=== PATIENT | female | born 1995 | race Caucasian/White ===

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

== ENCOUNTER 2018-02-04 11:12 | Outpatient (CLI) | payer OTHER ==
[2018-02-04 11:59] VITALS: BP 116/69; PULSE 72; RESP 16; TEMP 97.3
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
== END 2018-02-04 12:04 | disposition home or self-care (01) ==
LOC: FBPOP 11:12
PROVIDERS: ATTEND Obstetrics & Gynecology
DX: O26.893 Other specified pregnancy related conditions, third trimester (principal); Z3A.32 32 weeks gestation of pregnancy; M54.5 Low back pain; W10.9XXA Fall (on) (from) unspecified stairs and steps, initial encounter
CPT/HCPCS: 59025; G0463; 99213

== ENCOUNTER 2018-02-25 02:16 | Emergency (ER) | payer OTHER ==
[2018-02-25] MEDS ORDERED: LIDOCAINE 1% INJ 10MG/ML (20 ML MDV) SQ ONE (05:36)
--- NOTE | 2018-02-25 06:04 | ED ---
Skin/Abscess/FB HPI - General Chief complaint: Skin/Abscess/Foreign Body Stated complaint: Hemorrhoids,36 wks Time Seen by Provider: 02/25/18 04:18 Source: patient Mode of arrival: ambulatory Limitations: no limitations - History of Present Illness Initial comments: This patient is 22-year-old woman who states that she is approximately 36 weeks . She presents to have evaluation for which she believes is a hemorrhoid. She describes over the course the past night a lump at her anus and initially mild, now severe aching pain. She has not been passing blood. No fever or chills. complaint: other (Hemorrhoid) -: hour(s) Tetanus Up to Date: yes Severity: severe Quality: aching, constant Consistency: constant Improves with: none Worsens with: palpation Context: none Associated symptoms: denies other symptoms - Related Data Previous Rx's Medication Instructions Recorded Hydrocortisone [Anusol-Hc] 30 gm TP BID #30 gram 02/25/18 Allergies Allergy/AdvReac Type Severity Reaction Status Date / Time No Known Allergies Allergy Verified 04/20/14 16:20 Review of Systems ROS Statement: Those systems with pertinent positive or pertinent negative responses have been documented in the HPI. ROS Other: All systems not noted in ROS Statement are negative. Constitutional: Denies: fever, chills Respiratory: Denies: cough, dyspnea Cardiovascular: Denies: chest pain, palpitations, edema Gastrointestinal: Denies: abdominal pain, vomiting Genitourinary: Denies: dysuria, hematuria, discharge Hematological/Lymphatic: Denies: easy bleeding Past Medical History Additional Past Medical History / Comment(s): VASOVAGAL FAINTING. History of Any Multi-Drug Resistant Organisms: None Reported Past Surgical History: No Surgical Hx Reported Past Psychological History: Anxiety, Depression Smoking Status: Never smoker Past Alcohol Use History: None Reported Past Drug Use History: None Reported General Exam Limitations: no limitations General appearance: alert, in no apparent distress Respiratory exam: Present: normal lung sounds bilaterally. Absent: respiratory distress, wheezes, rales, rhonchi, stridor Cardiovascular Exam: Present: regular rate, normal rhythm, normal heart sounds. Absent: systolic murmur, diastolic murmur, rubs, gallop GI/Abdominal exam: Present: soft. Absent: tenderness Rectal exam: Present: hemorrhoids, other (Patient has approximately 2-1/2 cm external hemorrhoid with clear area of thrombosis. There is marked tenderness.) Extremities exam: Absent: pedal edema Skin exam: Present: warm, dry, intact, normal color. Absent: rash Course Vital Signs 02/25/18 02/25/18 02:24 06:14 Temperature 97.9 F 98.6 F Pulse Rate 82 89 Respiratory 18 19 Rate Blood Pressure 127/80 108/77 O2 Sat by Pulse 99 97 Oximetry Medical Decision Making - Medical Decision Making I discussed indications, risks, and benefits of incision of the thrombosed hemorrhoid, versus conservative treatment and having her follow with surgery. After discussion she requests having incision with removal of the clot. I performed this at the bedside with assistance of nursing staff. Skin was cleansed with topical Betadine. I injected approximately 1 mL of 1% lidocaine without epinephrine. I then performed a small stab incision with a # 11 scalpel at the site of the obvious thrombosis. I was able to express two small clots, and the hemorrhage julianne to approximately half the preprocedure size. There was small amount of blood expressed as well. Patient tolerated procedure well. Discussed postprocedural care as well as follow-up and return parameters. Disposition Clinical Impression: Hemorrhoid thrombosis Disposition: HOME SELF-CARE Condition: Fair Instructions: Hemorrhoids (ED) Prescriptions: Hydrocortisone [Anusol-Hc] 30 gm TP BID #30 gram Is patient prescribed a controlled substance at d/c from ED?: No Referrals: Herbert Way Jr, DO [Primary Care Provider] - 1-2 days Sparkle Brown MD [STAFF PHYSICIAN] - 1-2 days
[2018-02-25 06:40] VITALS: BP 108/77; PULSE 89; RESP 19; TEMP 98.6
== END 2018-02-25 06:15 | disposition home or self-care (01) ==
LOC: EC 02:16
DX: O22.43 Hemorrhoids in pregnancy, third trimester (principal); Z3A.36 36 weeks gestation of pregnancy
CPT/HCPCS: 99283; 46083; J2001

== ENCOUNTER 2018-02-28 01:28 | Outpatient (CLI) | payer OTHER ==
[2018-02-28 02:01] VITALS: BP 120/75; RESP 16
[2018-02-28 02:15] VITALS: PULSE 79; TEMP 97
--- NOTE | 2018-03-01 04:09 | P.MSEPDOC ---
Presenting Problems - Arrival Data Date of Arrival on Unit: 02/28/18 Time of Arrival on Unit: 01:28 Mode of Transport: Wheelchair - Complaint Comment: Hemorrhoid bleeding Medical History - Information : 1 Para: 0 Term: 0 : 0 Abortions: Spontaneous or Elective: 0 Number of Living Children: 0 - Gestational Age Gestational Age by CLARISSA (wks/days): 36 Weeks and 2 Days Review of Systems - Review of Systems Constitutional: No problems Breast: No problems ENT: No problems Cardiovascular: No problems Respiratory: No problems Gastrointestinal: No problems Genitourinary: No problems Musculoskeletal: No problems Neurological: No problems Skin: No problems Vital Signs - Temperature Temperature: 97.0 F Temperature Source: Temporal Artery Scan - Pulse Right Brachial Pulse Rate: 79 Pulse Assessment Method: Pulse Oximetry - Respirations Respiratory Rate: 16 Oxygen Delivery Method: Room Air O2 Sat by Pulse Oximetry: 98 - Blood Pressure Right Arm Blood Pressure: 120/75 Blood Pressure Mean: 90 Blood Pressure Source: Automatic Cuff Medical Screen Scoring (Pre) - Cervical Exam Dilation: Exam Deferred Effacement: Exam Deferred Membranes: Intact - Uterine Contractions Frequency: N/A Duration: N/A Intensity: N/A - Maternal Vital Signs Maternal Temperature: N/A Signs of Preeclampsia: N/A Maternal Respirations: N/A - Pain Assessment Pain Location and Character: Perineal Pain Scale Used: Numeric (1 - 10) Pain Intensity: 3 Pain Management Goal: 0 Pain Description: *Acute, Sore, Tender Pain Frequency: Intermittent Pain Duration Units: Minutes Pain Behavior: Vocalization Pain Aggravating Factors: Activity, Position, Sitting Non-Pharmacological Interventions: Distraction, Position/Reposition, Relaxation Technique - Maternal Trauma Maternal Trauma: N/A - Assessment Baseline FHR: 135 Heart Rate - NICHD Category: Category I (Normal) = 0 NST: Reactive Position: N/A Station: N/A - Total Score Total Score (Pre): 0 - Level of Risk Level of Risk: Low (0-5) Physician Notification (Pre) - Physician Notified Physician Notified Date: 02/28/18 Physician Notified Time: 01:45 Physician/Practitioner Notifed:: Dr. Noel Spoke With: Dr. Noel - Notification Comment Comment: PT cleared from OB stand point. D/C to ER for further evaluation. Disposition - Disposition OB Disposition: Discharge to home Discharge Date: 02/28/18 Discharge Time: 01:45 I agree with the RN Medical Screening Exam: Yes Risk & Benefit of care provided described in d/c instruction: Yes Diagnosis: HEMORRHOIDS IN , THIRD TRIMESTER
== END 2018-02-28 01:48 | disposition home or self-care (01) ==
LOC: FBPOP 01:28
PROVIDERS: ATTEND Obstetrics & Gynecology
DX: O22.43 Hemorrhoids in pregnancy, third trimester (principal); Z3A.36 36 weeks gestation of pregnancy
CPT/HCPCS: 59025; G0463; 99213

== ENCOUNTER 2018-03-30 07:42 | Inpatient (IN) | payer OTHER ==
[2018-03-30] MEDS ORDERED: LIDOCAINE 0.5% (PF) 5 MG/ML (50 ML SDV) SQ PRN (08:00)
[2018-03-30] MEDS ORDERED: LACTATED RINGERS 1,000 ML IV SCH (08:00)
[2018-03-30] MEDS ORDERED: METHYLERGONOVINE 0.2 MG/ML 1 ML AMP IM PRN (08:00)
[2018-03-30] MEDS ORDERED: CARBOPROST TROMETHAMINE 250 MCG/ML 1 ML AMP IM PRN (08:00)
[2018-03-30] MEDS ORDERED: AMPICILLIN 2,000 MG in SODIUM CHLORIDE 0.9% 100 ML IVPB STA (08:00)
[2018-03-30] MEDS ORDERED: TERBUTALINE 1 MG/ML VIAL SQ PRN (08:00)
[2018-03-30] MEDS ORDERED: OXYTOCIN 10 UNIT/ML 1 ML VIAL IM PRN (08:00)
[2018-03-30] MEDS: LACTATED RINGERS 1,000 ML IV SCH ×2 (08:39→08:53)
[2018-03-30 09:14] LABS: Basophils % (A) 0 %; Eosinophils % (A) 0 %; HCT 37.8 % (34.0-46.0); HGB 13.1 gm/dL (11.4-16.0); Lymphocytes # (A) 2.3 k/uL (1.0-4.8); Lymphocytes % (A) 15 %; MCH 29.5 pg (25.0-35.0); MCHC 34.6 g/dL (31.0-37.0); MCV 85.2 fL (80.0-100.0); Mean Platelet Volume 8.5; Monocytes # (A) 0.5 k/uL (0-1.0); Monocytes % (A) 4 %; Neutrophils # (A) 12.4 k/uL (1.3-7.7); Neutrophils % (A) 81 %; Platelet Count 205 k/uL (150-450); RBC 4.44 m/uL (3.80-5.40); RDW 13.1 % (11.5-15.5); WBC 15.3 k/uL (4.0-11.0)
[2018-03-30] MEDS ORDERED: diphenhydrAMINE 50 MG/ML 1 ML VIAL IVP PRN ×2 (11:52)
[2018-03-30] MEDS ORDERED: WITCH HAZEL 1 EACH MED..PAD TOPICAL PRN (11:52)
[2018-03-30] MEDS ORDERED: BENZOCAINE/MENTHOL SPRAY 1 GM/SPRAY AEROSOL TOPICAL PRN (11:52)
[2018-03-30] MEDS ORDERED: LANOLIN CREAM 5 GM TUBE TOPICAL PRN (11:52)
[2018-03-30] MEDS ORDERED: HYDROCORTISONE 2.5% RECTAL CREAM 30 GM TUBE RECTAL PRN (11:52)
[2018-03-30] MEDS ORDERED: diphenhydrAMINE 50 MG CAP PO PRN (11:52)
[2018-03-30] MEDS ORDERED: diphenhydrAMINE 25 MG CAP PO PRN (11:52)
[2018-03-30] MEDS ORDERED: ZOLPIDEM 5 MG TAB PO PRN (11:52)
[2018-03-30] MEDS ORDERED: SIMETHICONE 80 MG CHEWABLE PO PRN (11:52)
[2018-03-30] MEDS ORDERED: OXYTOCIN 20 UNITS/1000 ML NS 1,000 ML IV SCH (12:00)
[2018-03-30] MEDS ORDERED: AMPICILLIN 1,000 MG in SODIUM CHLORIDE 0.9% 50 ML IVPB SCH (12:00)
--- NOTE | 2018-03-30 12:49 | P.HPOB ---
History of Present Illness H&P Date: 03/30/18 Chief Complaint: normal labor 22 year old presents at 40 weeks 4 days in labor. Her cervix was 3-4/100/- 1. She was shahzad every 2-4 minutes. heart tones 125-130 with moderate variability and reactive. Review of Systems All systems: negative Constitutional: Denies chills, Denies fever Eyes: denies blurred vision, denies pain Ears, nose, mouth and throat: Denies headache, Denies sore throat Cardiovascular: Denies chest pain, Denies shortness of breath Respiratory: Denies cough Gastrointestinal: Denies abdominal pain, Denies diarrhea, Denies nausea, Denies vomiting Genitourinary: Denies dysuria, Denies hematuria Musculoskeletal: Denies myalgias Integumentary: Denies pruritus, Denies rash Neurological: Denies numbness, Denies weakness Psychiatric: Denies anxiety, Denies depression Endocrine: Denies fatigue, Denies weight change Past Medical History Additional Past Medical History / Comment(s): VASOVAGAL FAINTING. Obstetric history: This is her first . She has had care with ct since first trimester. O+, abs neg, Rub Imm, RPR NR, HEp b neg. GBS pos. History of Any Multi-Drug Resistant Organisms: None Reported Past Surgical History: No Surgical Hx Reported Smoking Status: Never smoker Medications and Allergies Home Medications Medication Instructions Recorded Confirmed Type Pnv No.95/Ferrous Fum/Folic AC 1 each PO ONCE 02/28/18 03/30/18 History [ Multivitamin Tablet] Allergies Allergy/AdvReac Type Severity Reaction Status Date / Time No Known Allergies Allergy Verified 03/30/18 07:58 Exam Osteopathic Statement: *. No significant issues noted on an osteopathic structural exam other than those noted in the History and Physical/Consult. Intake and Output 03/29/18 03/30/18 03/30/18 22:59 06:59 14:59 Other: Weight 73.028 kg Heart: Regular rate and rhythm Lungs: Clear to auscultation bilaterally Abdomen: Soft, nontender Extremities: Negative Homans sign Results Result Diagrams: 03/30/18 08:24 Abnormal Lab Results - Last 24 Hours (Table) 03/30/18 Range/Units 08:24 WBC 15.3 H (4.0-11.0) k/uL Neutrophils # 12.4 H (1.3-7.7) k/uL Assessment and Plan (1) Normal labor Current Visit: Yes Status: Acute Code(s): O80 - ENCOUNTER FOR FULL-TERM UNCOMPLICATED DELIVERY; Z37.9 - OUTCOME OF DELIVERY, UNSPECIFIED SNOMED Code(s ): 07123814 Plan: 1. Expectant management 2. Anticipate normal vaginal delivery
--- NOTE | 2018-03-30 12:50 | P.PROBDLV ---
Vaginal Delivery Note - . Vaginal Delivery Note: 2 year old presents at 40 weeks 4 days in labor. Her cervix was 3-4/100/- 1. She was shahzad every 2-4 minutes. heart tones 125-130 with moderate variability and reactive. She was admitted to [facility] and antibiotics were started. Amniotomy performed at 8:34 AM clear fluid noted. Epidural was given soon thereafter. Her cervix was completely dilated at 11:04 AM, she pushed and delivered a viable male infant over intact perineum under epidural anesthesia at 11:26 AM. Head delivered OA, anterior shoulder delivered gentle downward guidance followed by posterior shoulder and rest of body. Nose and mouth bulb suctioned, cord clamped and cut, placed mother 's abdomen. Apgars 9, 9, weight 7 lbs. 2 oz. Placenta delivered spontaneously , intact with three-vessel cord at 11:27 AM. Vagina, cervix, and perineum were inspected. Bilateral labial lacerations were repaired with 3-0 Vicryl. Estimated blood loss 150 mL. Mother and baby in stable condition.
[2018-03-30 13:09] VITALS: BMI 25.9
[2018-03-30] MEDS: ACETAMINOPHEN TAB 325 MG TAB PO PRN (14:23)
[2018-03-30] MEDS: SENNOSIDES-DOCUSATE SODIUM 1 EACH TAB PO SCH (20:34)
[2018-03-30] MEDS: IBUPROFEN 600 MG TAB PO PRN (20:34)
--- NOTE | 2018-03-31 08:04 | P.PNOBGVD ---
Subjective - Subjective Principal diagnosis: S/P NVD PPD #1 Interval history: Patient seen and examined. Denies nausea, vomiting, chest pain, shortness of breath or calf pain. She is doing well with breast-feeding. Patient reports: Reports appetite normal, Reports voiding normally, Reports pain well controlled, Reports ambulating normally [place]: doing well Objective - Latest Vital Signs Latest vital signs: Vital Signs Temp Pulse Resp BP Pulse Ox 03/31/18 07:46 98.3 F 77 16 98/56 98 03/30/18 23:19 98.3 F 79 16 106/58 03/30/18 20:00 98.2 F 77 16 126/70 03/30/18 16:00 98.3 F 76 16 124/67 03/30/18 13:29 98.1 F 113 H 16 113/62 03/30/18 12:59 116 H 16 103/66 03/30/18 12:29 88 16 120/66 03/30/18 12:14 103 H 16 126/71 03/30/18 11:59 104 H 16 115/75 03/30/18 11:44 97 16 113/78 03/30/18 11:29 85 16 150/72 Intake and Output 03/30/18 03/31/18 03/31/18 22:59 06:59 14:59 Intake Total 1000 Balance 1000 Intake: IV 1000 Oxytocin 20 Units/1000 ml 1000 Ns 1,000 ml @ Per Protocol IV .Q0M [facility] Rx#: [id number] Other: # Voids 1 1 - Exam Lungs: bilateral: normal Chest: Normal S1, Normal S2 Extremities: Present: normal Abdomen: Present: normal appearance, soft Uterus: Present: normal, firm - Labs Labs: Abnormal Lab Results - Last 24 Hours (Table) 03/30/18 Range/Units 08:24 WBC 15.3 H (4.0-11.0) k/uL Neutrophils # 12.4 H (1.3-7.7) k/uL Assessment and Plan (1) Normal labor Current Visit: Yes Status: Resolved Code(s): O80 - ENCOUNTER FOR FULL-TERM UNCOMPLICATED DELIVERY; Z37.9 - OUTCOME OF DELIVERY, UNSPECIFIED SNOMED Code(s ): 98732869 (2) Status post normal vaginal delivery Current Visit: Yes Status: Acute Code(s): TSB7713 - SNOMED Code(s): 340132382 Plan: 1. Continue care 2. Continue with breast-feeding help 3. Anticipate discharge tomorrow
[2018-03-31] MEDS: IBUPROFEN 600 MG TAB PO PRN ×3 (08:21→23:47)
[2018-03-31] MEDS: SENNOSIDES-DOCUSATE SODIUM 1 EACH TAB PO SCH ×2 (08:47→23:47)
[2018-03-31] MEDS: ACETAMINOPHEN TAB 325 MG TAB PO PRN (18:42)
[2018-04-01] MEDS: ACETAMINOPHEN TAB 325 MG TAB PO PRN (06:20)
[2018-04-01] MEDS: SENNOSIDES-DOCUSATE SODIUM 1 EACH TAB PO SCH (08:00)
--- NOTE | 2018-04-01 08:58 | P.DS ---
Providers Date of admission: 03/30/18 08:02 Expected date of discharge: 04/01/18 Attending physician: Ale Gurrola Primary care physician: Stated None - Discharge Diagnosis(es) (1) Normal labor Current Visit: Yes Status: Resolved (2) Status post normal vaginal delivery Current Visit: Yes Status: Acute Hospital Course: Patient presented in active labor. She underwent a normal vaginal delivery at 40 weeks and 4 days. Her course was uncomplicated. She'll be discharged home day #2 in stable condition to follow-up with me in 6 weeks. Plan - Discharge Summary New Discharge Prescriptions: New Ibuprofen [Motrin] 600 mg PO Q6HR PRN #30 tab PRN Reason: Mild Pain Or Fever >= 100.5 No Action Pnv No.95/Ferrous Fum/Folic AC [ Multivitamin Tablet] 1 each PO ONCE Discharge Medication List Pnv No.95/Ferrous Fum/Folic AC [ Multivitamin Tablet] 1 each PO ONCE [History] Ibuprofen [Motrin] 600 mg PO Q6HR PRN #30 tab 04/01/18 [Rx] Follow up Appointment(s)/Referral(s): Ale Gurrola DO [Doctor of Osteopathic Medicine] - 6 Weeks Discharge Disposition: HOME SELF-CARE
[2018-04-01 13:34] VITALS: BP 115/66; PULSE 86; RESP 16; TEMP 98.3
[2018-04-01] MEDS: IBUPROFEN 600 MG TAB PO PRN (15:30)
== END 2018-04-01 15:40 | disposition home or self-care (01) | DRG 807 ==
LOC: FBPOP 07:42 → 4FBP 08:02
PROVIDERS: ADMIT Obstetrics & Gynecology; ATTEND Obstetrics & Gynecology
PROC: 10E0XZZ Delivery of Products of Conception, External Approach (ICD-10-PCS; principal; 2018-03-30)
PROC: 0HQ9XZZ Repair Perineum Skin, External Approach (ICD-10-PCS; 2018-03-30)
PROC: 00HU33Z Insertion of Infusion Device into Spinal Canal, Percutaneous Approach (ICD-10-PCS; 2018-03-30)
PROC: 3E0R3BZ Introduction of Anesthetic Agent into Spinal Canal, Percutaneous Approach (ICD-10-PCS; 2018-03-30)
DX: O99.824 Streptococcus B carrier state complicating childbirth (principal); O70.0 First degree perineal laceration during delivery; O99.62 Diseases of the digestive system complicating childbirth; K21.9 Gastro-esophageal reflux disease without esophagitis; Z37.0 Single live birth; Z3A.40 40 weeks gestation of pregnancy
CPT/HCPCS: 59025; 85025; 86850; 86900; 86901; 99213

== ENCOUNTER 2020-06-20 14:26 | Observation (INO) | payer OTHER ==
[2020-06-20] MEDS ORDERED: SODIUM CHLORIDE 0.9% 500 ML 500 ML IV STA ×2 (14:49→16:06)
[2020-06-20] MEDS ORDERED: ACETAMINOPHEN TAB 500 MG TAB PO STA (14:49)
--- NOTE | 2020-06-20 15:02 | ED ---
Abdominal Pain HPI - General Chief Complaint: Abdominal Pain Stated Complaint: Cramping - newly preg Time Seen by Provider: 06/20/20 14:37 Source: patient Mode of arrival: ambulatory Limitations: no limitations - History of Present Illness Initial Comments: Patient is a 24-year-old female presenting to the emergency Department with complaints of right groin pain since this morning. Patient states she had a positive home test last week, is unsure how far along she is but thinks she is anywhere from 6-8 weeks along. This is her second , she is 1 child at home. SILVER STEWARD is Dr. Gurrola. She states this morning when she woke up she felt some right lower groin pain and throughout the day has progressed to very steady and sharp in nature. She is currently rating her pain an 8/10. She states she does have some radiation towards her right lower quadrant and right side. She denies history of kidney stones. She denies any vaginal bleeding. She denies any chest pain or short of breath, no fevers or chills. She denies a history of abdominal surgeries. She denies any nausea or vomiting or diarrhea. She has no further complaints at this time. Upon arrival to the ER, her vitals are stable. - Related Data Home Medications Medication Instructions Recorded Confirmed Pnv No.95/Ferrous Fum/Folic AC 1 tab PO DAILY 02/28/18 06/20/20 [ Multivitamin Tablet] Previous Rx's Medication Instructions Recorded HYDROcodone/APAP 5-325MG [[place] 1 tab PO Q4HR PRN #20 tab 06/20/20 5-325] Allergies Allergy/AdvReac Type Severity Reaction Status Date / Time No Known Allergies Allergy Verified 06/20/20 16:38 Review of Systems ROS Statement: Those systems with pertinent positive or pertinent negative responses have been documented in the HPI. ROS Other: All systems not noted in ROS Statement are negative. Past Medical History Additional Past Medical History / Comment(s): VASOVAGAL FAINTING. Obstetric history: This is her first . She has had care with me since first trimester. O+, abs neg, Rub Imm, RPR NR, HEp b neg. GBS pos. History of Any Multi-Drug Resistant Organisms: None Reported Past Surgical History: No Surgical Hx Reported Past Anesthesia/Blood Transfusion Reactions: No Reported Reaction Past Psychological History: Anxiety, Depression Smoking Status: Vaper Past Alcohol Use History: None Reported Past Drug Use History: None Reported - Past Family History Father Family Medical History: No Reported History General Exam - General Exam Comments Initial Comments: GENERAL: Patient is well-developed and well-nourished. Patient is nontoxic and in mild distress. HEAD: Atraumatic, normocephalic. EYES: Pupils equal round and reactive to light, extraocular movements intact, sclera anicteric, conjunctiva are normal. Eyelids were unremarkable. ENT: TMs normal, nares patent, oropharynx clear without exudates. Moist mucous membranes. NECK: Normal range of motion, supple without lymphadenopathy or JVD. LUNGS: Unlabored respirations. Breath sounds clear to auscultation bilaterally and equal. No wheezes rales or rhonchi. HEART: Regular rate and rhythm without murmurs, rubs or gallops. ABDOMEN: Soft, severe tenderness with palpation of the right lower quadrant, right groin area, positive guarding., normoactive bowel sounds. No masses appreciated. : Deferred, pt too painful to tolerate. MUSCULOSKELETAL: Normal extremities with adequate strength and normal range of motion, no pitting or edema. No clubbing or cyanosis. NEUROLOGICAL: Patient is alert and oriented x 3. Motor and sensory are also intact. Cranial nerves II through XII grossly intact. Symmetrical smile. Normal speech, normal gait. PSYCH: Normal mood, normal affect. SKIN: Warm, Dry, normal turgor, no rashes or lesions noted. Limitations: no limitations Course Vital Signs 06/20/20 06/20/20 06/20/20 14:29 15:31 16:19 Temperature 98.2 F Pulse Rate 99 87 87 Respiratory 20 16 16 Rate Blood Pressure 133/83 108/79 98/54 O2 Sat by Pulse 99 99 98 Oximetry 06/20/20 17:05 Temperature Pulse Rate 79 Respiratory 22 Rate Blood Pressure 91/57 O2 Sat by Pulse 98 Oximetry Medical Decision Making - Medical Decision Making Patient is a 24-year-old female, currently anywhere from 6-8 weeks , presenting with severe right lower quadrant pain that started this morning. She had a positive home test last week. , SILVER STEWARD is Dr. Gurrola. No vaginal bleeding, no fevers or chills. Vitals are stable. Labs are unremarkable, normal white count, hCG Quant is 15,000, urine is normal. Ultrasound shows a 6.7 cm thin-walled cyst or cystic lesion the right ovary, ovary and torsion cannot be excluded as there is little to no blood flow. Viable IUP at 6 weeks, 3 days, heart rate 120. Patient continues to have severe pain, we did give her fluids, pain control. I discussed case with Dr. Rueda who will take the patient to surgery to rule out ovarian torsion. Case discussed with Dr. Singletary. - Lab Data Result diagrams: 06/20/20 14:53 06/20/20 14:53 Lab Results 06/20/20 06/20/20 06/20/20 Range/Units 14:53 14:53 14:53 WBC 6.4 (3.8-10.6) k/uL RBC 4.58 (3.80-5.40) m/uL Hgb 13.7 (11.4-16.0) gm/dL Hct 38.7 (34.0-46.0) % MCV 84.7 (80.0-100.0) fL MCH 30.0 (25.0-35.0) pg MCHC 35.4 (31.0-37.0) g/dL RDW 12.0 (11.5-15.5) % Plt Count 203 (150-450) k/uL MPV 7.5 Neutrophils % 62 % Lymphocytes % 29 % Monocytes % 5 % Eosinophils % 2 % Basophils % 1 % Neutrophils # 4.0 (1.3-7.7) k/uL Lymphocytes # 1.9 (1.0-4.8) k/uL Monocytes # 0.3 (0-1.0) k/uL Eosinophils # 0.1 (0-0.7) k/uL Basophils # 0.0 (0-0.2) k/uL Sodium 136 L (137-145) mmol/L Potassium 4.1 (3.5-5.1) mmol/L Chloride 105 (98-107) mmol/L Carbon Dioxide 21 L (22-30) mmol/L Anion Gap 10 mmol/L BUN 6 L (7-17) mg/dL Creatinine 0.50 L (0.52-1.04) mg/dL Est GFR (CKD-EPI)AfAm >90 (>60 ml/min/1.73 sqM) Est GFR (CKD-EPI)NonAf >90 (>60 ml/min/1.73 sqM) Glucose 90 (74-99) mg/dL Plasma Lactic Acid Jesus (0.7-2.0) mmol/L Calcium 9.7 (8.4-10.2) mg/dL Total Bilirubin 0.2 (0.2-1.3) mg/dL AST 18 (14-36) U/L ALT 14 (4-34) U/L Alkaline Phosphatase 61 (38-126) U/L Total Protein 6.9 (6.3-8.2) g/dL Albumin 4.5 (3.5-5.0) g/dL HCG, Quant 88858.1 mIU/mL Urine Color Light Yellow Urine Appearance Clear (Clear) Urine pH 5.5 (5.0-8.0) Ur Specific [place] 1.008 (1.001-1.035) Urine Protein Negative (Negative) Urine Glucose (UA) Negative (Negative) Urine Ketones Negative (Negative) Urine Blood Negative (Negative) Urine Nitrite Negative (Negative) Urine Bilirubin Negative (Negative) Urine Urobilinogen <2.0 (<2.0) mg/dL Ur Leukocyte Esterase Negative (Negative) Blood Type Blood Type Recheck Bld Type Recheck Status Antibody Screen Spec Expiration Date 06/20/20 06/20/20 Range/Units 14:53 14:53 WBC (3.8-10.6) k/uL RBC (3.80-5.40) m/uL Hgb (11.4-16.0) gm/dL Hct (34.0-46.0) % MCV (80.0-100.0) fL MCH (25.0-35.0) pg MCHC (31.0-37.0) g/dL RDW (11.5-15.5) % Plt Count (150-450) k/uL MPV Neutrophils % % Lymphocytes % % Monocytes % % Eosinophils % % Basophils % % Neutrophils # (1.3-7.7) k/uL Lymphocytes # (1.0-4.8) k/uL Monocytes # (0-1.0) k/uL Eosinophils # (0-0.7) k/uL Basophils # (0-0.2) k/uL Sodium (137-145) mmol/L Potassium (3.5-5.1) mmol/L Chloride (98-107) mmol/L Carbon Dioxide (22-30) mmol/L Anion Gap mmol/L BUN (7-17) mg/dL Creatinine (0.52-1.04) mg/dL Est GFR (CKD-EPI)AfAm (>60 ml/min/1.73 sqM) Est GFR (CKD-EPI)NonAf (>60 ml/min/1.73 sqM) Glucose (74-99) mg/dL Plasma Lactic Acid Jesus 0.6 L (0.7-2.0) mmol/L Calcium (8.4-10.2) mg/dL Total Bilirubin (0.2-1.3) mg/dL AST (14-36) U/L ALT (4-34) U/L Alkaline Phosphatase (38-126) U/L Total Protein (6.3-8.2) g/dL Albumin (3.5-5.0) g/dL HCG, Quant mIU/mL Urine Color Urine Appearance (Clear) Urine pH (5.0-8.0) Ur Specific [place] (1.001-1.035) Urine Protein (Negative) Urine Glucose (UA) (Negative) Urine Ketones (Negative) Urine Blood (Negative) Urine Nitrite (Negative) Urine Bilirubin (Negative) Urine Urobilinogen (<2.0) mg/dL Ur Leukocyte Esterase (Negative) Blood Type O Positive Blood Type Recheck O Pos Bld Type Recheck Status No Antibody Screen NEGATIVE Spec Expiration Date 06/23/2020 - 2352 Critical Care Time Critical Care Time: Yes Total Critical Care Time: 35 (Patient 6 weeks , severe right lower quadrant pain, ultrasound reveals evidence for right-sided ovarian torsion, patient was taken to the OR were ovarian torsion was confirmed.) Disposition Clinical Impression: Right lower quadrant abdominal pain during , Right ovarian cyst, Torsion of right ovary Disposition: ADMITTED IP TO THIS HOSP Condition: Good Decision Date: 06/20/20 Decision Time: 16:42
[2020-06-20 15:08] LABS: Appearance,Urine Clear (Clear); Basophils % (A) 1 %; Bilirubin,Urine Negative (Negative); Blood,Urine Negative (Negative); Color,Urine Light Yellow; Eosinophils # (A) 0.1 k/uL (0-0.7); Eosinophils % (A) 2 %; Glucose,Urine (UA) Negative (Negative); HCT 38.7 % (34.0-46.0); HGB 13.7 gm/dL (11.4-16.0); Ketones,Urine Negative (Negative); Leukocyte Esterase,Urine Negative (Negative); Lymphocytes # (A) 1.9 k/uL (1.0-4.8); Lymphocytes % (A) 29 %; MCHC 35.4 g/dL (31.0-37.0); MCV 84.7 fL (80.0-100.0); Mean Platelet Volume 7.5; Monocytes # (A) 0.3 k/uL (0-1.0); Monocytes % (A) 5 %; Neutrophils % (A) 62 %; Nitrite,Urine Negative (Negative); PH, Urine 5.5 (5.0-8.0); Platelet Count 203 k/uL (150-450); Protein,Urine Negative (Negative); RBC 4.58 m/uL (3.80-5.40); Specific Gravity,Urine 1.008 (1.001-1.035); Urobilinogen,Urine <2.0 mg/dL (<2.0); WBC 6.4 k/uL (3.8-10.6)
[2020-06-20 15:15] LABS: ALT 14 U/L (4-34); AST 18 U/L (14-36); African American GFR (CKD) >90 (>60 ml/min/1.73 sqM); Albumin 4.5 g/dL (3.5-5.0); Alkaline Phosphatase 61 U/L (38-126); Anion Gap 10 mmol/L; Blood Urea Nitrogen 6 mg/dL (7-17); Calcium 9.7 mg/dL (8.4-10.2); Carbon Dioxide 21 mmol/L (22-30); Chloride 105 mmol/L (98-107); Glucose 90 mg/dL (74-99); Non-African American GFR(CKD) >90 (>60 ml/min/1.73 sqM); Potassium 4.1 mmol/L (3.5-5.1); Sodium 136 mmol/L (137-145); Total Bilirubin 0.2 mg/dL (0.2-1.3); Total Protein 6.9 g/dL (6.3-8.2)
[2020-06-20] MEDS ORDERED: MORPHINE SULFATE 4 MG/ML SYRINGE IVP STA (15:17)
[2020-06-20] MEDS ORDERED: ONDANSETRON 4 MG/2 ML VIAL IVP STA ×2 (15:23→15:24)
[2020-06-20] MEDS ORDERED: HYDROmorphone 0.5 MG/0.5 ML SYRINGE IVP STA (16:00)
[2020-06-20 16:03] LABS: HCG,Quantitative Serum 15422.1 mIU/mL
--- NOTE | 2020-06-20 16:06 | US ---
EXAMINATION TYPE: Transabdominal DATE OF EXAM: 06/20/2020 3:48 PM COMPARISON: NONE CLINICAL HISTORY: severe right groin pain x 1 day. right pelvic pain. Positive beta hCG test. EXAM PERFORMED: Transvaginal (TV) and Transabdominal (TA) EXAM MEASUREMENTS: GESTATIONAL AGE / DATING Physician Established: Not yet established Dates by LMP: (8 weeks/0 days) EDC: 01/30/21 Dates by First Scan: No previous this is first scan Dates by Current Scan for: (6 weeks/3 days) EDC: 02/10/21 MATERNAL ANATOMY Uterus: 9.9 x 5.4 x 5.7cm Right Ovary: 7.7 x 5.4 x 5.4cm Left Ovary: 3.2 x 1.8 x 1.6cm Post CDS / Adnexa: small amount of free fluid posterior cul-de-sac Presence of free fluid: yes Presence of corpus luteal cyst: yes, hypoechoic area left ovary = 1.4 x 1.2 x 1.3cm GESTATION / SURVEY CRL: 0.6cm (6 weeks/3 days) Yolk Sac (normal less than 6mm): 0.3cm Heart Rate: 120 bpm Rhythm: Normal IUP: Viable IUP Date of LMP: 04/25/20 Beta HcG (if available): Not available at this time single viable IUP 6wks/3days with CLARISSA of 02/10/21. cystic area right ovary = 6.7 x 5.0 x 5.3cm, minim al to no flow visualized right ovary due to small amount of normal ovarian tissue visualized due to l arge cystic area Single live intrauterine gestation as gestational sac, yolk sac, and pole are present. he art rate lower limits of normal. Free fluid in the pelvis noted. Enlarged right ovary due to 6.7 cm thin-walled cyst or cystic lesion. Peripheral follicles in left ov bandar. IMPRESSION: There is 6.7 cm thin-walled cyst or cystic lesion right ovary difficult to completely denys racterize due to size. In patient with right-sided pain, torsion cannot be excluded. Early live intra uterine noted.
[2020-06-20] MEDS ORDERED: MORPHINE SULFATE 4 MG/ML SYRINGE IV PRN (16:38)
[2020-06-20] MEDS ORDERED: IBUPROFEN 400 MG TAB PO PRN (16:38)
[2020-06-20] MEDS ORDERED: ACETAMINOPHEN TAB 325 MG TAB PO PRN (16:38)
[2020-06-20] MEDS ORDERED: ONDANSETRON 4 MG/2 ML VIAL IVP PRN (16:38)
[2020-06-20] MEDS ORDERED: KETOROLAC 15 MG/ML 1 ML VIAL IVP PRN (16:38)
[2020-06-20] MEDS ORDERED: NALOXONE 0.4 MG/ML 1 ML VIAL IV PRN (16:38)
--- NOTE | 2020-06-20 16:51 | P.HPOB ---
History of Present Illness H&P Date: 06/20/20 Chief Complaint: Large right ovarian cyst: Torsion Jany is a 24-year-old at 7 weeks gestation with viable based on ultrasound. There was significant concern that she may have an ectopic with new onset right lower quadrant pain started yesterday and was significantly worse today. She does relate that sometime last week she began having some intermittent pain that would come and go but starting yesterday became much more consistent. This morning at approximately 10 AM she began having severe right lower quadrant pain that was constant and was 10 out of 10. She was brought to the emergency room where findings of a 6 cm cyst were noted with limited to no blood flow as well as a viable 7 week . This is a very challenging condition as she is but has what we suspect is a torsed ovary that is currently in the process of dying. Surgical intervention is necessary to reduce the torsion and break the cyst there is a chance she is aware that she could lose the ovary. There is also a chance that surgery in and of itself could cause a miscarriage. We had a very lengthy discussion between she and her significant other I explained these things in great detail we will try and minimize the risk by doing as little surgery is possible we do not plan to do any extensive dissection of the cyst the goal is to reduce any torsion metastases present and do a large cystotomy to drain the cyst and then try and get her out of the operating room. Other risks did include but were not limited to bleeding and infection, damage to bladder or bowel, vascular injuries, nerve injuries. Both she and her significant other understand the critical nature of the torsed ovary and potential for losing her ovary with possible infectious etiology or problems moving forward and that the sooner we can untorse at the better the likelihood of it surviving is but they are acutely aware that unfortunately surgery could result in a miscarriage and these were very clearly explained to them and will plan to move forward with a diagnostic laparoscopy as soon as possible. On physical exam her vital signs currently are stable and she is afebrile. Her heart is regular her lungs are clear. Extremities without pain. Abdomen is grossly tender with rebound and guarding. Ultrasound does not show any significant free fluid in the posterior cul-de-sac slightly do not think that the cyst is seen in the process of popping it seems much more likely that it is torsed on itself in the last day or so. Assessment right ovarian cyst with suspected torsion. Intrauterine at 7 weeks heart rate 120 Plan diagnostic laparoscopy with expectation that if everything is fine she will plan to go home tonight and will follow up with the office in the next day or 2 for re-ultrasound to verify viability. Past Medical History Additional Past Medical History / Comment(s): VASOVAGAL FAINTING. Obstetric history: This is her first . She has had care with me since first trimester. O+, abs neg, Rub Imm, RPR NR, HEp b neg. GBS pos. History of Any Multi-Drug Resistant Organisms: None Reported Past Surgical History: No Surgical Hx Reported Past Anesthesia/Blood Transfusion Reactions: No Reported Reaction Past Psychological History: Anxiety, Depression Smoking Status: Vaper Past Alcohol Use History: None Reported Past Drug Use History: None Reported - Past Family History Father Family Medical History: No Reported History Medications and Allergies Home Medications Medication Instructions Recorded Confirmed Type Pnv No.95/Ferrous Fum/Folic AC 1 tab PO DAILY 02/28/18 06/20/20 History [ Multivitamin Tablet] Allergies Allergy/AdvReac Type Severity Reaction Status Date / Time No Known Allergies Allergy Verified 06/20/20 16:38 Exam Osteopathic Statement: *. No significant issues noted on an osteopathic st ructural exam other than those noted in the History and Physical/Consult. Vital Signs Temp Pulse Resp BP Pulse Ox 06/20/20 16:19 87 16 98/54 98 06/20/20 15:31 87 16 108/79 99 06/20/20 14:29 98.2 F 99 20 133/83 99 Intake and Output 06/20/20 06/20/20 06/20/20 06:59 14:59 22:59 Other: Weight 70.307 kg Results Result Diagrams: 06/20/20 14:53 06/20/20 14:53 Abnormal Lab Results - Last 24 Hours (Table) 06/20/20 06/20/20 Range/Units 14:53 14:53 Sodium 136 L (137-145) mmol/L Carbon Dioxide 21 L (22-30) mmol/L BUN 6 L (7-17) mg/dL Creatinine 0.50 L (0.52-1.04) mg/dL Plasma Lactic Acid Jesus 0.6 L (0.7-2.0) mmol/L
[2020-06-20] MEDS ORDERED: GLYCOPYRROLATE 0.2 MG/ML 2 ML VIAL ONE (17:20)
[2020-06-20] MEDS ORDERED: IV FLUID CONTINUATION 1,000 ML IV ONE (17:20)
[2020-06-20] MEDS ORDERED: LIDOCAINE 1% INJ 10MG/ML (20 ML MDV) ONE (17:20)
[2020-06-20] MEDS ORDERED: PROPOFOL 10 MG/ML 20 ML VIAL IV ONE (17:20)
[2020-06-20] MEDS ORDERED: DEXAMETHASONE SOD PHOSPHATE 10 MG/ML 1 ML VIAL ONE (17:20)
[2020-06-20] MEDS ORDERED: ROCURONIUM 10 MG/ML (5 ML VIAL) IV ONE (17:20)
[2020-06-20] MEDS ORDERED: fentaNYL (PF) 50 MCG/ML 2 ML AMP ONE (17:20)
[2020-06-20] MEDS ORDERED: KETOROLAC 15 MG/ML 1 ML VIAL ONE (17:20)
[2020-06-20] MEDS ORDERED: SUCCINYLCHOLINE CHLORIDE 100 MG/5 ML SYR IV ONE (17:20)
[2020-06-20] MEDS ORDERED: ONDANSETRON 4 MG/2 ML VIAL ONE (17:20)
[2020-06-20] MEDS ORDERED: NEOSTIGMINE 1 MG/ML 10 ML VIAL ONE (17:20)
[2020-06-20] MEDS ORDERED: SODIUM CHLORIDE 0.9% 100 ML with ceFAZolin 2,000 MG IV ONE ×2 (17:30)
[2020-06-20] MEDS ORDERED: BUPIVACAINE (PF) 0.25% 30 ML VIAL SQ ONE ×3 (17:35)
[2020-06-20] MEDS ORDERED: LACTATED RINGERS 1,000 ML IV ONE (17:38)
[2020-06-20 18:25] VITALS: TEMP 97
--- NOTE | 2020-06-20 18:30 | P.OP ---
Date of Procedure: 06/20/20 Preoperative Diagnosis: Acute abdominal pain with ovarian cyst suspected torsion Postoperative Diagnosis: Same with torsion of right ovary Procedure(s) Performed: Diagnostic laparoscopy with resolution of torsion and right ovarian cystotomy Anesthesia: BRANDIE Surgeon: Malcolm Rueda Estimated Blood Loss (ml): 5 IV fluids (ml): 200 Urine output (ml): 100 Pathology: none sent Condition: stable Disposition: same day Operative Findings: Right ovarian cyst with torsion 6 reduced with what appears to be good blood flow upon resolution of torsion Description of Procedure: Patient was taken to the operating suite where a general anesthetic was found be adequate. She was prepped and draped in normal sterile fashion and placed in the dorsal lithotomy position. Initially a red rubber catheter was used to drain the bladder of urine and a sponge stick was placed in the vagina in case we needed some manipulation. Once this was completed gloves were changed and attention was turned to the abdominal portion procedure where 2 mL of quarter percent Marcaine was injected periumbilically. Through this injected anesthetic a 5 mm skin incision was made and through this incision, under direct visualization with an optical trocar and sleeve, the camera was inserted. Once peritoneal placement was assured gas was allowed to fully insufflate the abdomen and patient was then placed in a very steep Trendelenburg position. Immediately upon entry and once omentum fell back off of the uterus and ovary we could clearly visualize a torsed ovary underneath the uterus in the posterior cul-de-sac. Second port and sleeve were then inserted in the left lower quadrant again under direct visualization through a 5 mm trocar and sleeve. Uterus was then gently elevated and the ovary began to untwist 5 total untwist were done just with gravity and then we did untwist one more full twist to bring the ovary up out of the cul-de-sac completely and to place it on the between the bowel and the uterus for stabilization. Once completed L Hook with cautery 2 small holes in the right ovary to drain the cyst. Cyst drained easily and then suction was used to remove the fluid from the abdomen. Inspection revealed almost immediate return of color to the ovary no evidence of necrosis or of the ovary is noted therefore is left in situ. Once this completed gas was allowed to expel from the abdomen 5 deep breaths were provided. Instruments were then removed and 4-0 Vicryl was used to close incision subcuticular and another 6 mL of quarter percent Marcaine was injected around these incisions. Instruments were then removed from vagina. Sponge, lap, needle counts were all correct 2. Patient was then taken to the recovery room in stable and satisfactory condition. Plan - Discharge Summary New Discharge Prescriptions: New HYDROcodone/APAP 5-325MG [[place] 5-325] 1 tab PO Q4HR PRN #20 tab PRN Reason: Pain No Action Pnv No.95/Ferrous Fum/Folic AC [ Multivitamin Tablet] 1 tab PO DAILY Discharge Medication List Pnv No.95/Ferrous Fum/Folic AC [ Multivitamin Tablet] 1 tab PO DAILY 02/28/18 [History] HYDROcodone/APAP 5-325MG [[place] 5-325] 1 tab PO Q4HR PRN #20 tab 06/20/20 [Rx] Follow up Appointment(s)/Referral(s): Herbert Way Jr, DO [Primary Care Provider] - 1-2 days Ale Gurrola DO [Family Provider] - 1 Week Activity/Diet/Wound Care/Special Instructions: No heavy lifting, limit stairs and driving, and pelvic rest. If any high temperatures, heavy bleeding, or severe pain call our office or report back to the emergency room Discharge Disposition: HOME SELF-CARE
[2020-06-20 19:09] VITALS: RESP 16
[2020-06-20 19:50] VITALS: BP 105/55; PULSE 65
== END 2020-06-20 20:09 | disposition home or self-care (01) ==
LOC: EC 14:26 → 6PED 16:38 → INTOOBSV 16:38 → UNDODISIN 20:09
PROVIDERS: ADMIT Obstetrics & Gynecology; ATTEND Obstetrics & Gynecology
DX: O34.81 Maternal care for other abnormalities of pelvic organs, first trimester (principal); N83.511 Torsion of right ovary and ovarian pedicle; N83.201 Unspecified ovarian cyst, right side; O99.341 Other mental disorders complicating pregnancy, first trimester; F32.9 Major depressive disorder, single episode, unspecified; F41.9 Anxiety disorder, unspecified; N83.12 Corpus luteum cyst of left ovary; Z3A.01 Less than 8 weeks gestation of pregnancy
CPT/HCPCS: 96374; 96375; 99291; 36415; 86900; 86901; 80053; 83605; 85025; 86850; 81003; 84702; 76801; 76817; 58662; G0378; J2270; J1100; J2710; J2405; J0690; J2001; J3010; J1885; J0330; J2704; J1170

== ENCOUNTER 2020-11-28 19:00 | Outpatient (CLI) | payer OTHER ==
[2020-11-28 21:10] VITALS: BP 128/60; PULSE 85; RESP 16; TEMP 98.3
--- NOTE | 2020-12-04 07:21 | P.MSEPDOC ---
Presenting Problems - Arrival Data Date of Arrival on Unit: 11/28/20 Time of Arrival on Unit: 19:01 Mode of Transport: Ambulatory - Complaint OB-Reason for Admission/Chief Complaint: Decreased Movement Comment: lower abd pain and pressure Medical History - Information : 2 Para: 1 Term: 1 : 0 Abortions: Spontaneous or Elective: 0 Number of Living Children: 1 - Gestational Age Gestational Age by CLARISSA (wks/days): 29 Weeks and 1 Days Review of Systems - Review of Systems Constitutional: No problems Breast: No problems ENT: No problems Cardiovascular: No problems Respiratory: No problems Gastrointestinal: No problems Genitourinary: No problems Musculoskeletal: No problems Neurological: No problems Skin: No problems Vital Signs - Temperature Temperature: 98.3 F Temperature Source: Oral - Pulse Pulse Oximetery Pulse Rate: 85 Pulse Assessment Method: Pulse Oximetry - Respirations Respiratory Rate: 16 Oxygen Delivery Method: Room Air O2 Sat by Pulse Oximetry: 97 - Blood Pressure Right Arm Blood Pressure: 128/60 Blood Pressure Mean: 82 Blood Pressure Source: Automatic Cuff Medical Screen Scoring - Assessment - Baby A Baseline FHR: 145 Heart Rate - NICHD Category: Category II (Indeterminate) NST: Reactive Physician Notification - Physician Notified Physician Notified Date: 11/28/20 Physician Notified Time: 20:12 Physician: Ale Gurrola Order Received: Yes (d/c home and to keep appt for 12/04/20) Maternal Triage Index - Maternal Triage Index Presenting for scheduled procedure w/no complaint: No - Stat/Priority 1 Stat Priority 1: No - Urgent/Priority 2 Urgent Priority 2: No - Prompt/Priority 3 Prompt Priority 3: No - Non-Urgent/Priority 4 Non-Urgent Priority 4: Yes Criteria Met for Priority 4: pt presents to triage with lower abd pressure and pain, and not feeling baby move as much since last night Disposition - Disposition OB Disposition: Discharge to home, Written follow up instructions reviewed Discharge Date: 11/28/20 Discharge Time: 20:16 I agree with the RN Medical Screening Exam: Yes Case reviewed; plan agreed upon as documented in EMR&OBIX.: Yes Diagnosis: DECREASED MOVEMENTS, THIRD TRIMESTER, FETUS 1
== END 2020-11-28 20:16 | disposition home or self-care (01) ==
LOC: FBPOP 19:00
PROVIDERS: ATTEND Obstetrics & Gynecology
DX: O36.8131 Decreased fetal movements, third trimester, fetus 1 (principal); Z3A.29 29 weeks gestation of pregnancy
CPT/HCPCS: 59025; G0463; 99213

== ENCOUNTER 2021-02-16 02:30 | Inpatient (IN) | payer OTHER ==
[2021-02-16] MEDS ORDERED: METHYLERGONOVINE 0.2 MG/ML 1 ML AMP IM PRN (03:48)
[2021-02-16] MEDS ORDERED: OXYTOCIN 10 UNIT/ML 1 ML VIAL IM PRN (03:48)
[2021-02-16] MEDS ORDERED: TERBUTALINE 1 MG/ML VIAL SQ PRN (03:48)
[2021-02-16] MEDS ORDERED: LIDOCAINE 0.5% (PF) 5 MG/ML (50 ML SDV) SQ PRN (03:48)
[2021-02-16] MEDS ORDERED: CARBOPROST TROMETHAMINE 250 MCG/ML 1 ML AMP IM PRN (03:48)
[2021-02-16] MEDS: LACTATED RINGERS 1,000 ML IV SCH ×3 (03:54→05:03)
[2021-02-16 04:22] LABS: Basophils % (A) 0 %; Eosinophils # (A) 0.1 k/uL (0-0.7); Eosinophils % (A) 1 %; HCT 38.5 % (34.0-46.0); HGB 12.8 gm/dL (11.4-16.0); Lymphocytes # (A) 2.8 k/uL (1.0-4.8); Lymphocytes % (A) 26 %; MCH 28.8 pg (25.0-35.0); MCHC 33.3 g/dL (31.0-37.0); MCV 86.4 fL (80.0-100.0); Mean Platelet Volume 9.9; Monocytes # (A) 0.5 k/uL (0-1.0); Monocytes % (A) 5 %; Neutrophils # (A) 7.4 k/uL (1.3-7.7); Neutrophils % (A) 68 %; Platelet Count 168 k/uL (150-450); RBC 4.45 m/uL (3.80-5.40); RDW 13.2 % (11.5-15.5); WBC 10.8 k/uL (3.8-10.6)
[2021-02-16] MEDS ORDERED: BUPIVACAINE (PF) 0.25% 30 ML VIAL ONE (04:35)
[2021-02-16] MEDS ORDERED: SODIUM CHLORIDE 0.9% 100 ML BAG ONE (04:35)
[2021-02-16] MEDS ORDERED: fentaNYL (PF) 50 MCG/ML 5 ML AMP ONE (04:35)
[2021-02-16] MEDS ORDERED: CITRIC ACID-SODIUM CITRATE 15 ML CUP PO ONE (05:09)
[2021-02-16] MEDS ORDERED: ROPIVACAINE 100 MG, fentaNYL (PF). 200 MCG in SODIUM CHLORIDE 0.9% 76 ML EPIDURAL ONE (07:19)
[2021-02-16] MEDS ORDERED: ZOLPIDEM 5 MG TAB PO PRN (07:53)
[2021-02-16] MEDS ORDERED: diphenhydrAMINE 25 MG CAP PO PRN (07:53)
[2021-02-16] MEDS ORDERED: HYDROCORTISONE 2.5% RECTAL CREAM 30 GM TUBE RECTAL PRN (07:53)
[2021-02-16] MEDS ORDERED: SIMETHICONE 80 MG CHEWABLE PO PRN (07:53)
[2021-02-16] MEDS ORDERED: LANOLIN CREAM 5 GM TUBE TOPICAL PRN (07:53)
[2021-02-16] MEDS ORDERED: diphenhydrAMINE 50 MG CAP PO PRN (07:53)
[2021-02-16] MEDS ORDERED: BENZOCAINE/MENTHOL SPRAY 1 GM/SPRAY AEROSOL TOPICAL PRN (07:53)
[2021-02-16] MEDS ORDERED: diphenhydrAMINE 50 MG/ML 1 ML VIAL IVP PRN ×2 (07:53)
[2021-02-16] MEDS ORDERED: OXYTOCIN 30 UNITS/500 ML NS 30 UNIT in SALINE 1 500ML.BAG IV SCH (08:00)
--- NOTE | 2021-02-16 08:52 | P.HPOB ---
History of Present Illness H&P Date: 02/16/21 Chief Complaint: SROM, labor 25-year-old presents at 40 weeks and 4 days in labor. Her cervix was 4-5 cm dilated, 80% effaced, -2 station. She was shahzad every 3-5 minutes. heart tones 135 with moderate variability and reactive. At 3:24 AM while she was in triage her water broke and clear fluid was noted. Review of Systems All systems: negative Constitutional: Denies chills, Denies fever Eyes: denies blurred vision, denies pain Ears, nose, mouth and throat: Denies headache, Denies sore throat Cardiovascular: Denies chest pain, Denies shortness of breath Respiratory: Denies cough Gastrointestinal: Denies abdominal pain, Denies diarrhea, Denies nausea, Denies vomiting Genitourinary: Denies dysuria, Denies hematuria Musculoskeletal: Denies myalgias Integumentary: Denies pruritus, Denies rash Neurological: Denies numbness, Denies weakness Psychiatric: Denies anxiety, Denies depression Endocrine: Denies fatigue, Denies weight change Past Medical History Additional Past Medical History / Comment(s): VASOVAGAL FAINTING. Obstetric history: First was a vaginal delivery. This is her second . She has had care with me since first trimester. O+, abs neg, Rub Imm, RPR NR, HEp b neg. GBS neg. History of Any Multi-Drug Resistant Organisms: None Reported Past Surgical History: No Surgical Hx Reported Additional Past Surgical History / Comment(s): Laproscopic revision of torsion and right ovarian cyst 07/06 Past Anesthesia/Blood Transfusion Reactions: No Reported Reaction Past Psychological History: Anxiety, Depression Smoking Status: Never smoker Past Alcohol Use History: None Reported Past Drug Use History: None Reported - Past Family History Father Family Medical History: No Reported History Medications and Allergies Home Medications Medication Instructions Recorded Confirmed Type Pnv No.95/Ferrous Fum/Folic AC 1 tab PO DAILY 02/28/18 02/16/21 History [ Multivitamin Tablet] Allergies Allergy/AdvReac Type Severity Reaction Status Date / Time No Known Allergies Allergy Verified 06/20/20 16:38 Exam Osteopathic Statement: *. No significant issues noted on an osteopathic structural exam other than those noted in the History and Physical/Consult. Vital Signs Temp Pulse Resp BP Pulse Ox 02/16/21 03:39 97.7 F 71 16 135/74 02/16/21 02:41 97.8 F 83 16 133/80 97 Intake and Output 02/15/21 02/16/21 02/16/21 22:59 06:59 14:59 Other: # Voids 3 Weight 80.739 kg Heart: Regular rate and rhythm Lungs: Clear to auscultation bilaterally Abdomen: Soft, nontender Extremities: Negative Homans sign Results Result Diagrams: 02/16/21 03:55 Abnormal Lab Results - Last 24 Hours (Table) 02/16/21 Range/Units 03:55 WBC 10.8 H (3.8-10.6) k/uL Assessment and Plan (1) Normal labor Current Visit: No Status: Resolved Code(s): O80 - ENCOUNTER FOR FULL-TERM UNCOMPLICATED DELIVERY; Z37.9 - OUTCOME OF DELIVERY, UNSPECIFIED SNOMED Code(s): 06865123 Plan: 1. Admit to family place 2. Expectant management 3. Anticipate normal vaginal delivery
--- NOTE | 2021-02-16 08:53 | P.PROBDLV ---
Vaginal Delivery Note - . Vaginal Delivery Note: 25-year-old presents at 40 weeks and 4 days in labor. Her cervix was 4-5 cm dilated, 80% effaced, -2 station. She was shahzad every 3-5 minutes. heart tones 135 with moderate variability and reactive. At 3:24 AM while she was in triage her water broke and clear fluid was noted. She is admitted to [facility] an epidural was placed for pain management. Her cervix was completely dilated at 7:33 AM. She pushed, and delivered a viable female over intact perineum under epidural anesthesia at 7:42 AM. Head delivered OA, anterior shoulder delivered gentle downward guidance followed by posterior shoulder and rest of body. Nose and mouth bulb suctioned, cord clamped and cut, placed mother's abdomen. Apgars 8, 9, weight 7 lbs. 4 oz. Placenta delivered spontaneously, intact with three-vessel cord at 7:45 AM. Vagina, cerv ix, perineum inspected. No lacerations noted. Estimated blood loss 150 mL. Mother and baby in stable condition.
[2021-02-16] MEDS: SENNOSIDES-DOCUSATE SODIUM 1 EACH TAB PO SCH ×2 (11:23→21:18)
[2021-02-16] MEDS: ACETAMINOPHEN TAB 325 MG TAB PO PRN ×2 (12:32→16:47)
[2021-02-16] MEDS: IBUPROFEN 600 MG TAB PO PRN (14:42)
[2021-02-17] MEDS: IBUPROFEN 600 MG TAB PO PRN ×3 (01:39→13:34)
[2021-02-17] MEDS: ACETAMINOPHEN TAB 325 MG TAB PO PRN ×2 (03:51→13:35)
[2021-02-17 07:39] LABS: Basophils % (A) 0 %; Eosinophils # (A) 0.1 k/uL (0-0.7); Eosinophils % (A) 1 %; HCT 36.2 % (34.0-46.0); HGB 11.8 gm/dL (11.4-16.0); Lymphocytes # (A) 2.8 k/uL (1.0-4.8); Lymphocytes % (A) 30 %; MCH 28.9 pg (25.0-35.0); MCHC 32.6 g/dL (31.0-37.0); MCV 88.9 fL (80.0-100.0); Mean Platelet Volume 9.7; Monocytes # (A) 0.4 k/uL (0-1.0); Monocytes % (A) 4 %; Neutrophils % (A) 64 %; Platelet Count 129 k/uL (150-450); RBC 4.08 m/uL (3.80-5.40); RDW 13.3 % (11.5-15.5); WBC 9.4 k/uL (3.8-10.6)
[2021-02-17 09:15] VITALS: RESP 16
--- NOTE | 2021-02-17 09:55 | P.DS ---
Providers Date of admission: 02/16/21 03:29 Expected date of discharge: 02/17/21 Attending physician: Ale Gurrola Primary care physician: Ale Gurrola - Discharge Diagnosis(es) (1) Status post normal vaginal delivery Current Visit: No Status: Acute Hospital Course: Patient presented in active labor at 40 weeks and 4 days. She did get an epidural for pain management and then had a spontaneous normal vaginal delivery. course was uncomplicated. She denies nausea, vomiting, chest pain, shortness of breath or any calf pain. Her lochia is decreasing she is tolerating regular diet and ambulating without problem. She'll be discharged home day #1 in stable condition to follow-up with me in 6 weeks. Plan - Discharge Summary New Discharge Prescriptions: New Ibuprofen [Motrin] 600 mg PO Q6HR PRN #30 tab PRN Reason: Mild Pain (Scale 1 To 3) No Action Pnv No.95/Ferrous Fum/Folic AC [ Multivitamin Tablet] 1 tab PO DAILY Discharge Medication List Pnv No.95/Ferrous Fum/Folic AC [ Multivitamin Tablet] 1 tab PO DAILY 02/28/18 [History] Ibuprofen [Motrin] 600 mg PO Q6HR PRN #30 tab 02/17/21 [Rx] Follow up Appointment(s)/Referral(s): Ale Gurrola DO [Primary Care Provider] - 6 Weeks Discharge Disposition: HOME SELF-CARE
[2021-02-17 16:51] VITALS: BP 122/71; PULSE 68; TEMP 98.2
== END 2021-02-17 17:47 | disposition home or self-care (01) | DRG 807 ==
LOC: FBPOP 02:30 → 4FBP 03:29
PROVIDERS: ADMIT Obstetrics & Gynecology; ATTEND Obstetrics & Gynecology
PROC: 10E0XZZ Delivery of Products of Conception, External Approach (ICD-10-PCS; principal; 2021-02-16)
PROC: 4A0HXCZ Measurement of Products of Conception, Cardiac Rate, External Approach (ICD-10-PCS; 2021-02-16)
DX: O99.344 Other mental disorders complicating childbirth (principal); Z37.0 Single live birth; F41.9 Anxiety disorder, unspecified; F32.A Depression, unspecified; Z3A.40 40 weeks gestation of pregnancy
CPT/HCPCS: 59025; 85025; 86850; 86900; 86901; 99213

== ENCOUNTER 2021-12-06 19:44 | Emergency (ER) | payer OTHER ==
[2021-12-06 19:48] VITALS: BP 114/68; PULSE 85; RESP 18; TEMP 98.5
[2021-12-06] MEDS ORDERED: LIDOCAINE 1% INJ 10MG/ML (20 ML MDV) SQ STA (21:12)
--- NOTE | 2021-12-06 21:16 | ED ---
Wound/Laceration HPI - General Chief Complaint: Wound/Laceration Stated Complaint: rt foot injury from knife Source: patient, RN notes reviewed Mode of arrival: ambulatory Limitations: no limitations - History of Present Illness Initial Comments: This is a pleasant 26-year-old female who states she was making dinner at about 8:30. Patient states she dropped a large kitchen knife which caused a laceration to the dorsum of her right fourth toe. Patient states she had quite a bit of bleeding initially. She states it seems to be clotted now. Patient states she is up-to-date on her tetanus shot. Patient takes an antidepressant but no other medications. No history of poor wound healing or immunosuppression. No blood dyscrasias. No other injuries. describing mild, 4 out 10 pain with no exacerbating or alleviating factors. No radiation. No headache, no fever or chills, no changes in vision or hearing, no sore throat or difficulty with speech, no neck pain, no chest pain or shortness of breath, no abdominal pain, no nausea or vomiting, no changes in urination or bowel movements, no numbness or tingling, no skin rashes or lesions. - Related Data Home Medications Medication Instructions Recorded Confirmed Pnv No.95/Ferrous Fum/Folic AC 1 tab PO DAILY 02/28/18 02/16/21 [ Multivitamin Tablet] Previous Rx's Medication Instructions Recorded Ibuprofen [Motrin] 600 mg PO Q6HR PRN #30 tab 02/17/21 Allergies Allergy/AdvReac Type Severity Reaction Status Date / Time No Known Allergies Allergy Verified 12/06/21 19:48 Review of Systems ROS Statement: Those systems with pertinent positive or pertinent negative responses have been documented in the HPI. ROS Other: All systems not noted in ROS Statement are negative. Past Medical History Additional Past Medical History / Comment(s): VASOVAGAL FAINTING. Obstetric history: First was a vaginal delivery. This is her second . She has had care with me since first trimester. O+, abs neg, Rub Imm, RPR NR, HEp b neg. GBS neg. History of Any Multi-Drug Resistant Organisms: None Reported Past Surgical History: No Surgical Hx Reported Additional Past Surgical History / Comment(s): Laproscopic revision of torsion and right ovarian cyst 07/06 Past Anesthesia/Blood Transfusion Reactions: No Reported Reaction Past Psychological History: Anxiety, Depression Smoking Status: Never smoker Past Alcohol Use History: None Reported Past Drug Use History: None Reported - Past Family History Father Family Medical History: No Reported History General Exam Limitations: no limitations General appearance: alert, in no apparent distress Head exam: Present: atraumatic, normocephalic, normal inspection Eye exam: Present: normal appearance, EOMI Neck exam: Present: normal inspection Respiratory exam: Present: normal lung sounds bilaterally. Absent: respiratory distress Cardiovascular Exam: Present: regular rate, normal rhythm, normal heart sounds GI/Abdominal exam: Present: soft. Absent: tenderness Extremities exam: Present: tenderness (Minimal, right fourth toe), normal capillary refill. Absent: pedal edema, joint swelling, calf tenderness Right Lower Leg exam: Present: normal inspection. Absent: tenderness, swelling, abrasion Ankle exam: Present: normal inspection, full ROM. Absent: tenderness, swelling Foot/Toe exam: Present: full ROM, laceration (Patient has a 2 cm laceration to the dorsum of her right fourth toe overlying the proximal phalanx.). Absent: swelling Neurovascular tendon exam: Present: no vascular compromise. Absent: pulse deficit, abnormal cap refill, motor deficit, sensory deficit, tendon deficit, extremity cold to touch, pallor Gait: observed and normal Course Vital Signs 12/06/21 19:46 Temperature 98.5 F Pulse Rate 85 Respiratory 18 Rate Blood Pressure 114/68 O2 Sat by Pulse 97 Oximetry Procedures - Laceration Laceration #1 Consent Obtained: verbal consent Indication: laceration Site: lower extremity (Right fourth toe) Size (cm): 2 Description: linear Depth: simple, single layer Anesthetic Used: lidocaine 1% Anesthesia Technique: local infiltration Amount (mls): 3 Pre-repair: wound explored, irrigated extensively, deep structures intact (Tendon intact with limited deep tissue examination. Good function versus resistance.) Type of Sutures: nylon Size of Sutures: 5-0 Number of Sutures: 4 Technique: simple, interrupted Patient Tolerated Procedure: well, no complications Medical Decision Making - Medical Decision Making Isolated injury to right fourth toe. Status up-to-date Past medical, surgical, social, and family history reviewed. Patient counseled on signs and symptoms of infection. Counseled on wound care. Suture removal in 10 days. Going to have the patient follow up with either her regular physician or orthopedics on Thursday as I could not visualize the tendon. Patient did have good tendon strength versus resistance with regards to DIP and PIP. However we will have her follow up is to be on the safe side. Patient voiced understanding. Patient was told to return to the ER for any signs or symptoms worsen. Told to return immediately if any other problems arise. All questions answered. Treatm ent plan discussed. Patient in agreement Every effort has been made to ensure accuracy of this dictation. However, due to the limitations of electronic medical records and dictation devices, errors in charting still occur. Bilingual Branch Manager Dr. Ribera - Radiology Data Radiology results: report reviewed, image reviewed Disposition Clinical Impression: Laceration without foreign body of right lesser toe(s) without damage to nail, initial encounter Narrative: Right fourth toe laceration, extensor Disposition: HOME SELF-CARE Condition: Good Instructions (If sedation given, give patient instructions): Laceration (ED) Additional Instructions: Suture removal in 10 days. Follow-up with orthopedics early your regular doctor for reevaluation. Wash the wound daily with warm soap and water. Apply a thin layer of antibiotic ointment such as Neosporin or triple anabolic ointment. Keep covered with a bandage. Is patient prescribed a controlled substance at d/c from ED?: No Referrals: Vasile Workman DO [Primary Care Provider] - 12/09/21 Kev Lynne PAC [PHYSICIAN [employer]IC] - 12/09/21 Time of Disposition: 22:01
--- NOTE | 2021-12-06 21:35 | XR ---
EXAMINATION TYPE: XR toes RT DATE OF EXAM: 12/06/2021 COMPARISON: NONE HISTORY: Laceration TECHNIQUE: 3 views fourth toe FINDINGS: There is no evidence of fracture nor dislocation. No evidence of a soft tissue foreign body . There are no erosions. Joint spaces are normal. IMPRESSION: Negative right fourth toe exam. No fracture.
[2021-12-06] MEDS ORDERED: BACITRACIN OINT 1 EACH PACKET TOPICAL ONE (21:58)
[2021-12-06] MEDS ORDERED: ACETAMINOPHEN TAB 500 MG TAB PO STA (22:04)
[2021-12-06] MEDS ORDERED: IBUPROFEN 400 MG TAB PO STA (22:04)
== END 2021-12-06 22:21 | disposition home or self-care (01) ==
LOC: EC 19:44
DX: S91.114A Laceration without foreign body of right lesser toe(s) without damage to nail, initial encounter (principal); F41.9 Anxiety disorder, unspecified; F32.A Depression, unspecified; W26.0XXA Contact with knife, initial encounter
CPT/HCPCS: 12001; 99283